=== PATIENT | female | born 1955 | race Caucasian/White ===

== ENCOUNTER → 2019-10-14 15:20 | Oncology outpatient (ONC) | payer MEDICARE, OTHER, SELFPAY ==
[2019-09-23 09:57] VITALS: BP 128/79; PULSE 71; RESP 18; TEMP 36.8; O2SAT 99
--- NOTE | 2019-09-23 10:20 | P.CONONC_ITS ---
History of Present Illness - Data of Consult Consult date: 09/23/19 Primary Care Provider: Phil Arellano CNP - Consult Narrative Narrative: Diagnosis: Polycythemia History of present illness: Yamilet Mayfield is a 63 year old female of newly discovered polycythemia. Patient reports that she had blood work done as part of routine physical in June. She had a normal white cell count of 5.7 and platelets at 332. Her hemoglobin was mildly elevated at 15.6 and hematocrit of 49.2. On recheck in July, her hemoglobin was 16.1 and hematocrit 50.3. The patient reports that she has had an upper respiratory or sinus infection that has been lingering but otherwise feels well. She has not had any unusual bleeding or bruising. She has not had any prior history of thrombosis. She denies any fevers chills or night sweats. Her appetite has been good. She has not been losing any weight. She has no history of splenomegaly. She is otherwise without complaint. Her past medical history is notable for some hypercholesterolemia, hypothyroidis m. She has had a prior ankle surgery for fracture. She has had anemia in the past that sounds like probably iron deficiency. She has never required a transfusion. She is not taking any iron. Her medications include levothyroxine and Lipitor. Family history is negative for any blood dyscrasias. Social history: She is a retired [employer] nurse. She does not smoke. She has very rare alcohol use. CC: Rip Mooney MD Home Medications and Allergies Home Medications Medication Instructions Recorded Confirmed Type atorvastatin 10 mg PO DAILY 09/23/19 09/23/19 History levothyroxine [Synthroid] 25 mcg PO DAILY 09/23/19 09/23/19 History grzoqypb-ljf-tmcz-FA-lutein 1 tab PO DAILY 09/23/19 09/23/19 History [Multivitamin Women 50 Plus] Allergies Allergy/AdvReac Type Severity Reaction Status Date / Time Chlorine Allergy Unknown Uncoded 02/06/18 12:01 Iodine Allergy Unknown Uncoded 02/06/18 12:01 Review of Systems - Patient Self-Reported Symptoms SR Constitution: Weight loss/gain, Fatigue/Malaise SR eye issues: Vision changes SR Skin issues: Dry skin SR Musculoskeletal issues: Joint pain or swelling Constitutional: normal activity level, no weight loss Ears, nose, mouth, throat: no headaches, no vertigo, no lightheadedness Cardiovascular: no chest pain, no palpitations Respiratory: no hemoptysis Gastrointestinal: no change in appetite, no abdominal pain Integumentary: no rash, no bleeding or bruising, no itching Hematologic/Lymphatic: anemia, no enlarged lymph nodes Exam Vital signs: Vital Signs Temp Pulse Resp BP Pulse Ox 09/23/19 09:57 98.3 F 71 18 128/79 99 Intake and Output 09/22/19 09/23/19 09/23/19 23:59 07:59 15:59 Other: Weight 91.7 kg Patient Weight 09/23/19 23:59 Weight 91.7 kg - Constitutional positive no acute distress, positive average body habitus - Routine HEENT Exam Head: Present: normocephalic, atraumatic Eye: Present: EOMI, PERRL. Absent: conjunctival icterus, scleral injection ENT: Present: mucous membranes moist, oropharynx clear - Routine Neck Exam Present: supple. Absent: lymphadenopathy, thyromegaly - Routine Chest/Breast/Axilla Exam Axillae: Absent: lymphadenopathy - Routine Respiratory Exam Present: Clear to auscultation bilaterally. Absent: rales, wheezes - Routine Cardiovascular Exam Present: RRR, S1, S2. Absent: murmur - Routine Abdominal Exam Present: soft, normoactive bowel sounds. Absent: tenderness, organomegaly, mass - Routine Extremities Exam Absent: cyanosis, clubbing, edema - Routine Back/Spine Exam Back/Spine: Absent: vertebral tenderness - Routine Skin Exam Present: intact. Absent: petechiae, rash - Routine Neurological Exam Present: alert, oriented X3 - Routine Psychiatric Exam Present: normal affect, normal thought process Assessment and Plan (1) Polycythemia Current visit: Yes Status: Acute A 63-year-old woman with recently diagnosed mild polycythemia. Her white cell count and platelet count have been normal. It is possible that this could represent polycythemia vera or other myeloproliferative disorder. We will plan on checking a bcr/ABL, CATIE 2 mutations. If those are negative, it may be reasonable to look at CALR or MPL. Will also plan on checking erythropoietin level. She does not have any obvious underlying condition that would cause a secondary polycythemia. It is possible that she might have sleep apnea. There is no known history of pulmonary or cardiac problems. She is not a smoker. She will return to clinic in about 2 weeks or so for follow-up. If she does have a myeloproliferative disorder, we would want to start phlebotomy and aspirin. She might potentially benefit from Hydrea as well.
[2019-09-23 11:47] LABS: Add Manual Diff / Slide Review NO; Basophils Absolute Auto 0 /uL (0-100); Basophils Percent Auto 0.7 % (0-2); Eosinophils Absolute Auto 100 /uL (0-450); Eosinophils Percent Auto 1.5 % (2-4); Hematocrit 42.8 % (36-46); Hemoglobin 14.6 g/dL (12.0-16.0); Lymphocytes Absolute Auto 2000 /uL (1100-4500); Lymphocytes Percent Auto 42.1 % (25-40); Mean Corpuscular HGB Conc 34.1 % (30-36); Mean Corpuscular Hemoglobin 31.9 PG (26-34); Mean Corpuscular Volume 93.6 fL (80-100); Monocytes Absolute Auto 300 /uL (0-900); Monocytes Percent Auto 7.2 % (3-14); Neutrophils Absolute Auto 2300 /uL (1500-7000); Neutrophils Percent Auto 48.5 % (50-75); Platelet Count 314 X10^3/uL (150-400); Red Blood Cell Count 4.57 X10^6/uL (4.0-5.2); White Blood Cell Count 4.8 X10^3/uL (4.5-11.0)
[2019-09-26 17:57] LABS: Erythropoietin 13.5 mIU/mL (2.6-18.5)
[2019-09-27 11:49] LABS: Specimen Source WHOLE BLOOD EDTA
--- NOTE | 2019-10-01 16:05 | ONC.SCHED ---
original Jak2 not ordered correctly/reordered 10/01/19/patient called to go to lab for a redraw [place] she'll call when she has them drawn next week, may have to reschedule her follow up
[2019-10-11 20:24] LABS: CALR Exon 9 Mutation NOT DETECTED (NOT DETECTED); CSF3R Exon 14/17 Mutation NOT DETECTED (NOT DETECTED); Clinical Indication D75.1; JAK2 Exon 12 Mutation NOT DETECTED (NOT DETECTED); JAK2 V617F NOT DETECTED (NOT DETECTED); MPL Exon 10 Mutation NOT DETECTED (NOT DETECTED); Specimen Source Blood
[2019-10-14 15:36] VITALS: BP 138/81; PULSE 75; RESP 16; TEMP 36.1; O2SAT 98
--- NOTE | 2019-10-14 15:52 | P.PNONC_ITS ---
PN -Subjective Interval history: Diagnosis: Polycythemia Interval history: The patient is a 64-year-old woman who returns today for follow-up. She was seen initially about 3 weeks ago. She was evaluated because of a mild polycythemia. She had a hemoglobi 16.1 and hematocrit 50.3. The patient reports that she had an upper respiratory or sinus infection that had been lingering around the time the blood was drawn but otherwise felt well. Today, she is without any complaint. Her strength and energy level have been good. No fevers chills or sweats. She has not had any unusual bleeding or bruising. She is not having any shortness of breath or cough. Appetite and energy level have been stable. She denies any other changes in her health. - Patient Self-Reported Symptoms SR Constitution: Fatigue/Malaise SR eye issues: Vision changes SR ears, nose, mouth, throat issues: Congestion SR respiratory issues: Shortness of breath SR Cardiovascular issues: Shortness of breath with activity or lying flat SR Skin issues: Dry skin SR Musculoskeletal issues: Joint pain or swelling, Muscle weakness Home Medications and Allergies Home Medications Medication Instructions Recorded Confirmed Type atorvastatin 10 mg PO DAILY 09/23/19 10/14/19 History levothyroxine [Synthroid] 25 mcg PO DAILY 09/23/19 10/14/19 History arsquato-vix-yshj-FA-lutein 1 tab PO DAILY 09/23/19 10/14/19 History [Multivitamin Women 50 Plus] Allergies Allergy/AdvReac Type Severity Reaction Status Date / Time Chlorine Allergy Unknown Uncoded 02/06/18 12:01 Iodine Allergy Unknown Uncoded 02/06/18 12:01 Exam Vital signs: Vital Signs Temp Pulse Resp BP Pulse Ox 10/14/19 15:36 96.9 F L 75 16 138/81 98 Intake and Output 10/13/19 10/14/19 10/14/19 23:59 07:59 15:59 Other: Weight 92.9 kg Patient Weight 10/14/19 23:59 Weight 92.9 kg - Constitutional positive no acute distress, positive average body habitus Comments: She is not further examined. Results - Labs Laboratory Last Values WBC 4.8 X10^3/uL (4.5-11.0) 09/23/19 10:42 WBC Cancelled 09/23/19 10:42 RBC 4.57 X10^6/uL (4.0-5.2) 09/23/19 10:42 RBC Cancelled 09/23/19 10:42 Hgb 14.6 g/dL (12.0-16.0) 09/23/19 10:42 Hgb Cancelled 09/23/19 10:42 Hct 42.8 % (36-46) 09/23/19 10:42 Hct Cancelled 09/23/19 10:42 MCV 93.6 fL (80-100) 09/23/19 10:42 MCV Cancelled 09/23/19 10:42 MCH 31.9 PG (26-34) 09/23/19 10:42 MCH Cancelled 09/23/19 10:42 MCHC 34.1 % (30-36) 09/23/19 10:42 MCHC Cancelled 09/23/19 10:42 RDW 14.0 % (11.6-14.8) 09/23/19 10:42 RDW Cancelled 09/23/19 10:42 Plt Count 314 X10^3/uL (150-400) 09/23/19 10:42 Plt Count Cancelled 09/23/19 10:42 Neut % (Auto) 48.5 % (50-75) L 09/23/19 10:42 Neut % (Auto) Cancelled 09/23/19 10:42 Lymph % (Auto) 42.1 % (25-40) H 09/23/19 10:42 Lymph % (Auto) Cancelled 09/23/19 10:42 [place] % (Auto) 7.2 % (3-14) 09/23/19 10:42 [place] % (Auto) Cancelled 09/23/19 10:42 Eos % (Auto) 1.5 % (2-4) L 09/23/19 10:42 Eos % (Auto) Cancelled 09/23/19 10:42 Baso % (Auto) 0.7 % (0-2) 09/23/19 10:42 Baso % (Auto) Cancelled 09/23/19 10:42 Neut # (Auto) 2300 /uL (0785-9476) 09/23/19 10:42 Neut # (Auto) Cancelled 09/23/19 10:42 Lymph # (Auto) 2000 /uL (6430-8831) 09/23/19 10:42 Lymph # (Auto) Cancelled 09/23/19 10:42 [place] # (Auto) 300 /uL (0-900) 09/23/19 10:42 [place] # (Auto) Cancelled 09/23/19 10:42 Eos # (Auto) 100 /uL (0-450) 09/23/19 10:42 Eos # (Auto) Cancelled 09/23/19 10:42 Baso # (Auto) 0 /uL (0-100) 09/23/19 10:42 Baso # (Auto) Cancelled 09/23/19 10:42 Erythropoietin 13.5 mIU/mL (2.6-18.5) 09/23/19 10:42 Sample Type D75.1 10/06/19 09:12 BM JAK2 V617F Intrp/Rpt See note 10/06/19 09:12 CSF3R Ex 14 & 17 Mut Det Not detected (NOT DETECTED) 10/06/19 09:12 JAK2 V617F Specimen Blood 10/06/19 09:12 JAK2 V617F Not detected (NOT DETECTED) 10/06/19 09:12 JAK2 Exon 12 Mutation Not detected (NOT DETECTED) 10/06/19 09:12 JAK2 Exon 12 Comment Not given 10/06/19 09:12 JAK2 V617F Comment See note 10/06/19 09:12 Calreticulin Exon 9 Mut Not detected (NOT DETECTED) 10/06/19 09:12 MPL Exon 10 Mutation Not detected (NOT DETECTED) 10/06/19 09:12 BCR/abl Source Whole blood edta 09/23/19 10:42 BCR/abl Prior Result Not given 09/23/19 10:42 BCR/abl1 to abl1 % 0.000 (0.000) 09/23/19 10:42 BCR/abl1 IS % 0.000 (0.000) 09/23/19 10:42 BCR/abl1 Quant Interp See note 09/23/19 10:42 Assessment and Plan (1) Polycythemia Current visit: Yes Status: Acute A 63-year-old woman with recently diagnosed mild polycythemia. On recheck her CBC here, her hemoglobin and hematocrit had normalized. Her with report level was normal. There were no mutations associated with a myeloproliferative disorder. I don't think that she has any underlying hematologic abnormality. I have not scheduled a follow-up appointment for her but would be happy see her again in the future should any new problems arise.
== END ==
PROVIDERS: PCP Registered Nurse Diabetes Educator
DX: D75.1 Secondary polycythemia (principal)
CPT/HCPCS: 36415; 81207; 82668; 85025; 99204; 99213; 99214